=== PATIENT | male | born 1935 | race African-American/Black ===

== ENCOUNTER 2016-06-28 16:47 | Emergency (ER) | payer MEDICARE ==
--- NOTE | 2016-06-28 16:59 | ER Document Report ---
ED Medical Screen (RME) - General Stated Complaint: COUGH Time seen by provider: 16:53 Mode of Arrival: Wheelchair Information source: Relative - daughter Notes: 81 yo male brought in by daughter (his caregiver) due to increased cough, malaise, with yellow mucous that is thick for 3 days. Hx bronchitis, CAD, CVA, ( right carotid blockage), COPD, dementia, anemia. I have greeted and performed a rapid initial assessment of this patient. A comprehensive ED assessment, evaluation of the patient, analysis of test results , and completion of the medical decision making process will be conducted by additional ED providers. - Related Data Allergies/Adverse Reactions: No Known Allergies Allergy (Verified 06/28/16 16:53) Physical Exam - Vital signs Vitals: Temp Pulse Resp BP Pulse Ox 97.7 F 72 14 153/78 H 97 06/28/16 16:51 06/28/16 16:51 06/28/16 16:51 06/28/16 16:51 06/28/16 16:51 Course - Vital Signs Vital signs: Temp Pulse Resp BP Pulse Ox 97.7 F 72 14 153/78 H 97 06/28/16 16:51 06/28/16 16:51 06/28/16 16:51 06/28/16 16:51 06/28/16 16:51
[2016-06-28] MEDS ORDERED: IPRATROPIUM/ALBUTEROL 0.5-2.5 MG/3 ML AMPUL NEB ONE (17:11)
--- NOTE | 2016-06-28 17:15 | ER Document Report ---
ED Respiratory Problem - General Chief Complaint: Cough Stated Complaint: COUGH Mode of Arrival: Wheelchair Information source: Patient, Relative Cannot obtain history due to: Dementia Notes: Patient is here visiting out of town with his daughter who is his primary caregiver. Patient's had a worsening cough for the past 3 days that has become productive with yellow sputum. Daughter states patient does have a history of COPD and emphysema and is worried about possible pneumonia. Daughter states that he felt warm but she did not have a thermometer to measure his temperature. Patient has not had any chest pain or shortness of breath complaints. TRAVEL OUTSIDE OF THE [place] IN LAST 30 DAYS: No - HPI Patient complains to provider of: COPD, Cough. No: Asthma, Short of breath Onset: Other - 3 days Duration: Worse/persistent Quality of pain: No pain Pain Level: Denies Context: Hx COPD. denies: Hx CHF, Recent immobilization, Recent surgery Cough: Productive Sputum amount: Moderate Sputum color: Yellow At home treatment: Bronchodilators Associated symptoms: Cough, Fever - Possible, patient felt warm. denies: Bloody cough, Chest pain/discomfort, Wheezing Similar symptoms previously: Yes Recently seen / treated by doctor: No - Related Data Allergies/Adverse Reactions: No Known Allergies Allergy (Verified 06/28/16 16:53) Past Medical History - General Information source: Relative - daughter - Social History Smoking Status: Smoker,Current Status Unk Chew tobacco use (# tins/day): No Frequency of alcohol use: None Drug Abuse: None Lives with: Family Family History: Reviewed & Not Pertinent Patient has suicidal ideation: No Patient has homicidal ideation: No - Past Medical History Cardiac Medical History: Reports: Hx Coronary Artery Disease, Other - Anemia, right carotid blockage Pulmonary Medical History: Reports: Hx Bronchitis, Hx COPD Neurological Medical History: Reports: Hx Cerebrovascular Accident - Left upper extremity weakness Renal/ Medical History: Denies: Hx Peritoneal Dialysis Surgical Hx: Negative Review of Systems - Review of Systems Constitutional: Fever - Possible EENT: No symptoms reported Cardiovascular: No symptoms reported. denies: Chest pain Respiratory: Cough, Sputum. denies: Short of breath Gastrointestinal: No symptoms reported. denies: Abdominal pain, Nausea, Vomiting Genitourinary: No symptoms reported, Incontinence. denies: Dysuria Male Genitourinary: No symptoms reported Musculoskeletal: No symptoms reported. denies: Back pain Skin: No symptoms reported Hematologic/Lymphatic: No symptoms reported Neurological/Psychological: Dementia Physical Exam - Vital signs Vitals: Temp Pulse Resp BP Pulse Ox 97.7 F 72 14 153/78 H 97 06/28/16 16:51 06/28/16 16:51 06/28/16 16:51 06/28/16 16:51 06/28/16 16:51 - General General appearance: Appears well, Alert In distress: None - HEENT Head: Normocephalic, Atraumatic Eyes: Normal Nasal: Normal Mouth/Lips: Normal Mucous membranes: Normal Neck: Normal, Supple. No: Lymphadenopathy - Respiratory Respiratory status: No respiratory distress Chest status: Nontender Breath sounds: Productive cough, Rhonchi Chest palpation: Normal - Cardiovascular Rhythm: Regular Heart sounds: S1 appreciated, S2 appreciated - Abdominal Inspection: Normal Distension: No distension Bowel sounds: Normal Tenderness: Nontender - Back Back: Normal, Nontender. No: CVA tenderness - Extremities General upper extremity: Other - Contractures left upper extremity. No: Edema General lower extremity: Normal inspection, Normal strength. No: Edema - Neurological Neuro grossly intact: Yes Cognition: Normal Boutte Coma Scale Eye Opening: Spontaneous Eileen Coma Scale Verbal: Confused Boutte Coma Scale Motor: Obeys Commands Eileen Coma Scale Total: 14 - Skin Skin Temperature: Warm Skin Moisture: Dry Skin Color: Normal Course - Re-evaluation Re-evalutation: 06/28/16 18:36 Respirations continue unlabored, vital signs stable. Daughter states that patient still has occasionally productive cough. Consulted with Dr. Santa, reviewed patient's diagnostic tests, discussed patient' s history and presentation. Agrees with discharge plan of care. Discussed plan of care with the daughter. Daughter verbalized understanding of instructions, discussed worsening signs or symptoms that patient should return immediately for. Family states that she does have current inhalers as well as nebulizer medication with her - Vital Signs Vital signs: Temp Pulse Resp BP Pulse Ox 97.7 F 72 18 140/77 H 98 06/28/16 16:51 06/28/16 16:51 06/28/16 18:00 06/28/16 18:00 06/28/16 18:00 - Laboratory Result Diagrams: 06/28/16 17:47 06/28/16 17:47 Laboratory results interpreted by me: 06/28/16 06/28/16 17:47 17:47 Hgb 12.4 L RDW 15.2 H ALT 18 L Alkaline Phosphatase 145 H Labs- Entire Visit 06/28/16 06/28/16 17:47 17:47 WBC 6.3 RBC 4.43 Hgb 12.4 L Hct 38.7 MCV 87 MCH 28.1 MCHC 32.1 RDW 15.2 H Plt Count 292 Seg Neutrophils % 59.9 Lymphocytes % 25.0 Monocytes % 9.5 Eosinophils % 4.9 Basophils % 0.7 Absolute Neutrophils 3.7 Absolute Lymphocytes 1.6 Absolute Monocytes 0.6 Absolute Eosinophils 0.3 Absolute Basophils 0.0 Sodium 141.3 Potassium 4.5 Chloride 102 Carbon Dioxide 30 Anion Gap 9 BUN 9 Creatinine 0.77 Est GFR ( Amer) > 60 Est GFR (Non-Af Amer) > 60 Glucose 87 Calcium 9.9 Total Bilirubin 0.6 Direct Bilirubin 0.0 AST 21 ALT 18 L Alkaline Phosphatase 145 H Total Protein 7.3 Albumin 4.1 06/28/16 18:40 - Diagnostic Test Radiology reviewed: Image reviewed, Reports reviewed Discharge - Discharge Clinical Impression: COPD exacerbation, Cough Condition: Stable Disposition: HOME, SELF-CARE Instructions: Chronic Obstructive Lung Disease ([facility]), Inhaled Bronchodilators ( [facility]), Ciprofloxacin ([facility]) Additional Instructions: Return immediately for any new or worsening symptoms Followup with your primary care provider, call tomorrow to make a followup appointment Use your inhaler and nebulizer at home as previously prescribed Prescriptions: Ciprofloxacin HCl [Cipro 500 mg Tablet] 500 mg PO BID #20 tablet Referrals: [facility] [Provider Group] - Follow up as needed
[2016-06-28 18:07] LABS: ABSOLUTE EOSINOPHILS # (AUTO) 0.3 10^3/uL (0.0-0.6); ABSOLUTE LYMPHOCYTES (AUTO) 1.6 10^3/uL (0.5-4.7); ABSOLUTE MONOCYTES (AUTO) 0.6 10^3/uL (0.1-1.4); ABSOLUTE NEUT (AUTO) 3.7 10^3/uL (1.7-8.2); BASOPHILS % (AUTO) 0.7 % (0-2); EOSINOPHILS % (AUTO) 4.9 % (0-6); HEMATOCRIT 38.7 % (37.9-51.0); HEMOGLOBIN 12.4 g/dL (13.5-17.0); HGB HCT DIFFERENCE -1.5; MEAN CORPUSCULAR HEMOGLOBIN 28.1 pg (27.0-33.4); MEAN CORPUSCULAR HGB CONC 32.1 g/dL (32.0-36.0); MEAN CORPUSCULAR VOLUME 87 fl (80-97); MONOCYTES % (AUTO) 9.5 % (3-13); RED BLOOD COUNT 4.43 10^6/uL (4.35-5.55); RED CELL DISTRIBUTION WIDTH 15.2 % (11.5-14.0); SEGMENTED NEUTROPHILS % (AUTO) 59.9 % (42-78); WHITE BLOOD COUNT 6.3 10^3/uL (4.0-10.5)
[2016-06-28 18:16] VITALS: BP 140/77
[2016-06-28 18:25] LABS: ALANINE AMINOTRANSFERASE 18 U/L (21-72); ALBUMIN 4.1 g/dL (3.5-5.0); ALKALINE PHOSPHATASE 145 U/L (38-126); ANION GAP 9 (5-19); ASPARTATE AMINO TRANSFERASE 21 U/L (17-59); BILIRUBIN,TOTAL 0.6 mg/dL (0.2-1.3); BLOOD UREA NITROGEN 9 mg/dL (7-20); CALCIUM 9.9 mg/dL (8.4-10.2); CARBON DIOXIDE 30 mmol/L (22-30); CHLORIDE 102 mmol/L (98-107); CREATININE RESULT 0.77 mg/dL (0.52-1.25); GLUCOSE 87 mg/dL (75-110); POTASSIUM 4.5 mmol/L (3.6-5.0); SODIUM 141.3 mmol/L (137-145); TOTAL PROTEIN 7.3 g/dL (6.3-8.2)
[2016-06-28] MEDS ORDERED: DOXYCYCLINE HYCLATE 100 MG TABLET PO ONE (18:39)
[2016-06-28] MEDS ORDERED: CIPROFLOXACIN HCL 500 MG TABLET PO ONE (18:41)
== END 2016-06-28 19:00 | disposition home or self-care (01) ==
LOC: ER 16:47
DX: J44.1 Chronic obstructive pulmonary disease with (acute) exacerbation (principal); I25.10 Atherosclerotic heart disease of native coronary artery without angina pectoris; D64.9 Anemia, unspecified; I69.954 Hemiplegia and hemiparesis following unspecified cerebrovascular disease affecting left non-dominant side
CPT/HCPCS: 94640; 99283; 36415; 87040; 87070; 87205; 85025; 87077; 80053; 87186; 71010; A9270 ×2; J7620